=== PATIENT | female | born 1990 | race Caucasian/White ===

== ENCOUNTER 2024-04-29 15:18 | Emergency (ER) | payer OTHER, SELFPAY ==
[2024-04-29] MEDS ORDERED: Ketorolac Tromethamine 30 MG (1 mL) VIAL ONE (15:51)
[2024-04-29 16:19] LABS: Bilirubin Neg (Negative); Blood, Urine 150 (Negative); Clarity Slightly Cloudy (Clear); Glucose, Urine (Dipstick) 100 mg/dL (Negative); Ketone, Urine Negative (Negative); Leukocyte Negative (Negative); Nitrite Negative (Negative); Protein, Urine (Dipstick) Negative (Neg-Trace); Specific Gravity, Urine 1.015 (1.005-1.030)
[2024-04-29 16:22] LABS: Pregnancy Test - Urine (BHCG) Negative (Negative); Pregu Control Background? CLEAR/WHITE (CLR/WHITE); Pregu Control Bar Appear? YES (CONTROL BAR); Specific Gravity 1.015 (1.002-1.036)
[2024-04-29 16:23] LABS: #Monocytes 0.73 10x3/uL (0.0-1.1); #Neutrophils 7.97 10x3/uL (1.5-8.4); %Basophils 0.2 % (0.0-2.0); %Eosinophils 1.2 % (0.0-6.0); %Lymphocytes 20.6 % (18.0-47.0); %Monocytes 6.5 % (0.0-10.0); %Neutrophils 71.2 % (40.0-75.0); Hematocrit 38.5 % (34.9-44.5); Hemoglobin 12.7 g/dL (12.0-15.5); Mean Corpuscular Hemoglobin 29.7 pg (27.0-33.0); Mean Platelet Volume 9.6 fL (7.4-10.4); Platelet Count 278 10x3/uL (150-450); RBC Distribution Width 12.3 % (11.5-14.5); Red Blood Cell (RBC) Count 4.28 10x6/uL (3.90-5.03); White Blood Cell (WBC) Count 11.2 10x3/uL (3.5-10.5)
[2024-04-29 16:24] LABS: #Basophils 0.02 10x3/uL (0.0-0.2); #Eosinophils 0.13 10x3/uL (0.0-0.5)
[2024-04-29 16:32] LABS: ALT (SGPT) 22 U/L (8-55); AST (SGOT) 16 U/L (5-34); Albumin 3.8 g/dL (3.5-5.0); Alkaline Phosphatase 58 U/L (40-110); Anion Gap 13 mmol/L (10-20); BUN (Urea Nitrogen) 9 mg/dL (7.0-18.7); Bilirubin, Total 0.4 mg/dL (0.2-1.2); Calc. Creatinine Clearance 0 mL/min (70-130); Calcium 9.4 mg/dL (7.8-10.44); Carbon Dioxide 25 mmol/L (22-29); Chloride 105 mmol/L (98-107); Estimated GFR 86; Glucose 97 mg/dL (70-105); Lipase 32 U/L (8-78); Potassium 3.5 mmol/L (3.5-5.1); Protein, Total 6.8 g/dL (6.0-8.3); Sodium 139 mmol/L (136-145)
[2024-04-29 17:01] LABS: CAUTI Indications for Culture Pelvic or flank pain; WBC/HPF 0-3 HPF (0-3)
[2024-04-29 17:03] LABS: Bacteria/HPF 3+ HPF (None Seen)
[2024-04-29 17:04] LABS: Mucous/LPF 1+ LPF (<2+)
[2024-04-29 17:08] LABS: Urine Culture Reflex No No
[2024-04-29] MEDS ORDERED: Dicyclomine 20 MG/2 ML VIAL ONE (17:50)
[2024-04-29] MEDS ORDERED: Dicyclomine 20 MG TAB ONE (17:52)
== END 2024-04-29 18:03 | disposition home or self-care (01) ==
LOC: CSHERS 15:18
DX: R19.7 Diarrhea, unspecified (principal); R10.0 Acute abdomen; F17.210 Nicotine dependence, cigarettes, uncomplicated; F17.290 Nicotine dependence, other tobacco product, uncomplicated
CPT/HCPCS: 36415; 74176; 80053; 81001; 81025; 83690; 85025; 96372; J1885